=== PATIENT | male | born 1980 | race African-American/Black ===

== ENCOUNTER 2017-05-17 08:27 | Emergency (ER) | payer OTHER, BC ==
[~2017-05-17] VITALS: Ht 179.1 cm; Wt 88.0 kg
[2017-05-17 08:31] VITALS: BP 126/83
[2017-05-17] MEDS ORDERED: PREDNISONE20 MG PO (09:26)
[2017-05-17] MEDS ORDERED: LIDODERM 5% P1 PATCH TD (09:26)
[2017-05-17] MEDS ORDERED: NAPROXEN500 MG PO (09:26)
== END 2017-05-17 10:14 | disposition home or self-care (01) ==
LOC: EME 08:27
DX: M54.31 Sciatica, right side (principal); F17.200 Nicotine dependence, unspecified, uncomplicated
CPT/HCPCS: 99281; 99284; J1885; J7512

== ENCOUNTER 2018-02-20 17:01 | Emergency (ER) | payer BC ==
[~2018-02-20] VITALS: Ht 177.8 cm; Wt 82.0 kg
[~2018-02-20 17:01] MED LIST: LIDODERM 5% P1 PATCH TD; NAPROXEN500 MG PO; PREDNISONE20 MG PO
[2018-02-20 19:04] LABS: MONOSPOT (MONONUCLEOSIS SEROL) NEGATIVE
[2018-02-20] MEDS ORDERED: NORCO 5/3251 TABLET PO (19:32)
[2018-02-20] MEDS ORDERED: XYLOCAINE VISC100 ML PO (19:32)
[2018-02-20 19:47] VITALS: BP 143/89
== END 2018-02-20 19:48 | disposition home or self-care (01) ==
LOC: EME 17:01
PROVIDERS: Physician Assistant
DX: J02.0 Streptococcal pharyngitis (principal)
CPT/HCPCS: 86308; 87651 90; 99281; 99285; J0561; J1100; J1885; J7030